=== PATIENT | male | born 1955 | race Caucasian/White ===

== ENCOUNTER 2018-03-18 09:51 | Emergency (ER) | payer MEDICAID ==
[~2018-03-18] VITALS: Ht 175.3 cm; Wt 97.7 kg
[2018-03-18 10:03] VITALS: BP 146/76
[2018-03-18] MEDS ORDERED: KETOROLAC 30 MG/1 ML ONE (10:43)
[2018-03-18] MEDS ORDERED: KETOROLAC 30 MG/1 ML IM ONE (11:00)
== END 2018-03-18 11:04 | disposition home or self-care (01) ==
LOC: ED 10:45
DX: M79.672 Pain in left foot (principal)
CPT/HCPCS: 73630; 96372; 99284; J1885